=== PATIENT | female | born 1960 | race Caucasian/White ===

== ENCOUNTER 2024-11-01 16:38 | Emergency (ER) | payer BC, SELFPAY ==
[2024-11-01 16:58] VITALS: BP 126/91; PULSE 75; RESP 18; TEMP 36.9; O2SAT 97; BMI 23.4
--- NOTE | 2024-11-01 17:23 | ED.CHESTPAIN ---
HPI - Chest Pain General Date Seen: 11/01/24 Chief Complaint: Chest Pain Stated Complaint: Chest tightness, jaw pain Time Seen by Provider: 11/01/24 17:23 History of Present Illness HPI narrative: 64 yo female with a past medical history of asthma and history of breast cancer in 2020. According to her line medical record she also has a history of gastritis due to NSAIDs. . She has been healthy and well lately. No recent illness, cough, or other chest pains. No recent shortness of breath. No swelling in her legs. No hospitalization, travel or recent immobilization. She had [employer] for lunch today was feeling healthy earlier today. This afternoon she was sitting and reading in a rocking chair for about an hour when she had fairly abrupt onset of a discomfort like a squeezing in her central chest that radiated up to both sides of her jaw. It made her catch her breath and made her chest feel tight and squeeze E. It lasted a few minutes and then got better. It took a while to completely resolve but is now gone. It was not associated with any palpitations. No nausea. Mild shortness of breath. No abdominal pain. No back pain. Related Data Home Medications ?Medication ?Instructions ?Recorded ?Confirmed albuterol sulfate 90 mcg/actuation 1 - 2 puff inhalation Q4H PRN 11/01/24 11/01/24 aerosol inhaler wheezing fluticasone 250 mcg-salmeterol 50 1 ea inhalation Q12H 11/01/24 11/01/24 mcg/dose blistr powdr for inhalation (Wixela Inhub) tamoxifen 20 mg tablet 20 mg PO DAILY 11/01/24 11/01/24 Allergies Allergy/AdvReac Type Severity Reaction Status Date / Time codeine AdvReac Unknown Vomiting Verified 11/01/24 16:57 PFSH PFSH Social History Non-prescribed substance use: denies use Exam Narrative Exam Narrative: Constitutional: Appears well-developed and well-nourished. Alert. Conversant. Non toxic. HENT: Head: Atraumatic. Nose: Nose normal. Mouth/Throat: Oral mucosa is clear and moist. no trismus. Pharynx normal. Tonsils symmetric. No tonsillar enlargement, erythema, or exudate. Eyes: Conjunctivae normal. EOM normal. Pupils equal, round, and reactive to light. No scleral icterus. Neck: Normal range of motion. Neck supple. No tracheal deviation present. No JVD Cardiovascular: Normal rate, regular rhythm. No gallop. No friction rub. No murmur heard. Symmetric radial and PT artery pulses Pulmonary/Chest: Effort normal. No stridor. No respiratory distress. No wheezes. No rales. No rhonchi . No tenderness. Abdominal: Soft. No distension. No mass. No tenderness. No rebound. No guarding. Musculoskeletal: RUE: Normal range of motion. No tenderness. No deformity LUE: Normal range of motion. No tenderness. No deformity RLE: Normal range of motion. No edema. No tenderness. No deformity LLE: Normal range of motion. No edema. No tenderness. No deformity Neurological: Alert and oriented to person, place, and time. Normal strength. CN II-VII intact. No sensory deficit. GCS eye subscore is 4. GCS verbal subscore is 5. GCS motor subscore is 6. Normal coordination Skin: Skin is warm and dry. No rash noted. No pallor. Normal capillary refill. Psychiatric: Normal mood. Normal affect. Very polite. Const Vital Signs, click to edit/add: Vital Signs - 24 hr 11/01/24 16:58 11/01/24 17:38 11/01/24 17:39 Temperature 98.5 F Pulse Rate [Pulse Oximeter] 75 Respiratory Rate 18 16 14 Blood Pressure 148/90 H Blood Pressure [Right Upper Arm] 126/91 H Pulse Oximetry 97 Oxygen Delivery Method Room Air 11/01/24 18:12 11/01/24 18:15 11/01/24 20:05 Temperature Pulse Rate [Pulse Oximeter] 66 Respiratory Rate 14 14 16 Blood Pressure Blood Pressure [Right Upper Arm] 146/91 H Pulse Oximetry Oxygen Delivery Method Course Vital Signs Vital signs: Initial Vital Signs Respiratory Effort Normal, Spontaneous, Non-Labored 11/01/24 16:55 Respiratory Depth Normal 11/01/24 16:55 Respiratory Pattern Normal 11/01/24 16:55 Vital Signs Temperature 98.5 F 11/01/24 16:58 Pulse Rate 75 11/01/24 16:58 Respiratory Rate 18 11/01/24 16:58 Blood Pressure 126/91 H 11/01/24 16:58 Pulse Oximetry 97 11/01/24 16:58 Oxygen Delivery Method Room Air 11/01/24 16:58 Temperature 98.5 F 11/01/24 16:58 Pulse Rate 66 11/01/24 20:05 Respiratory Rate 16 11/01/24 20:05 Blood Pressure 146/91 H 11/01/24 20:05 Pulse Oximetry 97 11/01/24 16:58 Oxygen Delivery Method Room Air 11/01/24 16:58 Medications Administered Medications: Discontinued Medications Generic Name Dose Route Start Last Admin Trade Name Argenis PRN Reason Stop Dose Admin Aspirin 324 mg 11/01/24 17:40 11/01/24 17:50 Aspirin 81 Mg Tab.Chew PO 11/01/24 17:41 324 mg ONCE ONE Administration MDM - Chest Pain MDM Narrative Medical decision making narrative: This patient presents to the ER today for evaluation of an episode of chest pain that came 0 she was at rest in a rocking chair reading a book this afternoon about 1-2 hours prior to arrival. Differential was broad. No evidence of palpitations, syncope or other cardiac dysrhythmia. We considered possible ACS, however workup with EKG and troponin is negative. HEART score is 2 (low risk). Given time since onset of symptoms, we did check initial and 2 hour delta troponins. I do not think the patient needs to be admitted for further sets of enzymes. EKG shows no evidence for pericarditis. Clinical presentation not suggestive of myocarditis. Chest x-ray shows no evidence for pneumonia, pneumothorax, pulmonary edema, pleural effusion, rib fracture, cardiomegaly. Mediastinum is normal on the x-ray. The patient has no ripping or tearing pain through to the back and has symmetric pulses on exam, no other acute neuro findings so I doubt aortic dissection. Risk of radiation and contrast exposure would outweigh the benefit of CT angiogram. We considered PE for this patient. However she has no tachycardia, hypoxia, leg swelling risk factors. With 1 brief episode of chest pain that self-resolved, I do not think she needs PE workup. No wheezing or bronchospasm to suggest COPD/asthma. She does have a history of asthma and does have some hyperinflation on her chest x-ray but no wheezing today. No signs of chest wall cellulitis, shingles, injury. With reasonable clinical confidence, I think the patient is safe for outpatient follow up. Discussed return precautions. Questions answered. Patient voices comfort with the plan. Lab Data Labs: Lab Results 11/01/24 11/01/24 11/01/24 Range/Units 17:30 17:40 19:30 WBC 5.05 (4.50-11.00) K/uL RBC 4.24 (4.00-5.20) m/uL Hgb 13.0 (12.0-16.0) gm/dL Hct 39.2 (33.0-51.0) % MCV 93 (80-100) fL MCH 31 (26-34) pg MCHC 33 (32-36) gm/dL RDW Coeff of [place] 12.3 (11.5-15.5) % Plt Count 271 (140-440) K/uL Neut % (Auto) 53.8 (42.0-72.0) % Lymph % (Auto) 30.5 (20-44) % Blair % (Auto) 12.7 H (0.0-11.0) % Eos % (Auto) 2.6 (0.0-7.0) % Baso % (Auto) 0.2 (0.0-3.0) % Neut # (Auto) 2.72 (1.7-7.0) K/uL Lymph # (Auto) 1.54 (0.90-2.90) K/uL Blair # (Auto) 0.60 (0.00-0.90) K/UL Eos # (Auto) 0.13 (0.00-0.50) K/uL Baso # (Auto) 0.01 (0.00-0.30) K/uL Abs Immat Gran (auto) 0.01 (0.00-0.30) K/uL Imm/Tot Granulo (auto) 0.2 % Sodium 136 (135-149) mmol/L Potassium 4.0 (3.6-5.1) mmol/L Chloride 103 (96-114) mmol/L Carbon Dioxide 26 (20-32) mmol/L Anion Gap 7 (7-15) mEq/L BUN 18 (7-30) mg/dL Creatinine 0.7 (0.5-1.5) mg/dL Estimated Creat Clear 56.00 Estimated GFR 97 ml/min Glucose 95 (60-115) mg/dL Calcium 9.4 (8.4-10.6) mg/dL POC Troponin I 0.00 L 0.00 L (0.01-0.04) ng/ml Imaging Data Chest x-ray: Attestation: I have reviewed the pertinent imaging results. Radiologist's impression: IMPRESSION: 1. Bilateral pulmonary hyperinflation and lucency is noted. This is suggestive of moderate to severe pulmonary emphysema. ECG Data Attestation: I personally reviewed and interpreted this ECG as follows: Interpretation: Normal sinus rhythm Rate: 63 SC: 184 QRS axis: Normal axis. No pathologic Q-waves. ST segment/T wave: No ST segment elevation or depression. QTc: 429 Discharge Plan Discharge Clinical Impression: Chest pain Patient Disposition: Home, Self-Care Condition: Stable Instructions: Chest Pain (DC) Additional Instructions: At this point your workup looks reassuring. We do not see any evidence for heart attack as a cause for your chest pain today. I think it is safe for you to go home. However I wanted to monitor yourself carefully. If you have more episodes of chest pain or other symptoms such as shortness of breath, palpitations, swelling in your legs, or any concerns, please come back to the ER or see your doctor immediately. Prescriptions: No Action fluticasone propion-salmeterol [Wixela Inhub] 250-50 mcg/dose blister with device 1 ea INHALATION Q12H albuterol sulfate 90 mcg/actuation HFA aerosol inhaler 1 - 2 puff INHALATION Q4H PRN (Reason: wheezing) tamoxifen 20 mg tablet 20 mg PO DAILY Follow Up/Referrals: Agatha Mcgraw DO [Primary Care Provider, Family Practice] Stand Alone Forms: [facility] Info Instructions
[2024-11-01 17:38] VITALS: BP 148/90; RESP 16
[2024-11-01 17:39] VITALS: RESP 14
--- NOTE | 2024-11-01 17:40 | CRLHL7_ITS ---
For Patients: As a result of the Cures Act, medical imaging exams and procedure reports are released immediately into your electronic medical record. You may view this report before your referring provider. If you have questions, please contact your health care provider. INDICATION: Chest pain TECHNIQUE: Chest radiograph 2 views COMPARISON: None FINDINGS: Mediastinum: The mediastinum is normal in appearance. The heart silhouette is normal in size and morphology. Lung: Bilateral pulmonary hyperinflation and lucency is noted. No sign of pleural effusion seen. No pneumothorax is identified. Bone and Soft tissue: Unremarkable for age. Several surgical clips are seen over the right breast. Prominent nipple silhouettes are noted bilaterally. IMPRESSION: 1. Bilateral pulmonary hyperinflation and lucency is noted. This is suggestive of moderate to severe pulmonary emphysema. Dictated by Arjun Tafoya MD @ 11/01/2024 6:02:34 PM Dictated by: Arjun Tafoya MD @ 11/01/2024 18:02:36 (Electronically Signed)
[2024-11-01] MEDS: ASPIRIN 81 MG TAB.CHEW 324 MG PO (17:50)
[2024-11-01 17:51] LABS: Basophils Absolute Auto 0.01 K/uL (0.00-0.30); Basophils Percent Auto 0.2 % (0.0-3.0); Eosinophils Absolute Auto 0.13 K/uL (0.00-0.50); Eosinophils Percent Auto 2.6 % (0.0-7.0); Hematocrit 39.2 % (33.0-51.0); Immature Granulocytes Abs Auto 0.01 K/uL (0.00-0.30); Immature Granulocytes Pct Auto 0.2 %; Lymphocytes Absolute Auto 1.54 K/uL (0.90-2.90); Lymphocytes Percent Auto 30.5 % (20-44); Mean Corpuscular HGB Conc 33 gm/dL (32-36); Mean Corpuscular Hemoglobin 31 pg (26-34); Mean Corpuscular Volume 93 fL (80-100); Monocytes Percent Auto 12.7 % (0.0-11.0); Neutrophils Absolute Auto 2.72 K/uL (1.7-7.0); Neutrophils Percent Auto 53.8 % (42.0-72.0); Platelet Count* 271 K/uL (140-440); RDW Coefficient of Variation % 12.3 % (11.5-15.5); Red Blood Count 4.24 m/uL (4.00-5.20); White Blood Count* 5.05 K/uL (4.50-11.00)
[2024-11-01 17:53] LABS: Slide Review Reflex No
--- OUTSIDE RECORDS SUMMARY | 2024-11-01 17:56 | XMS_ITS | Clinical Summary ---
Author Organization [facility] Address [address] [place] [id number] Care Team Providers Care Valve Mechanic Name Role Phone Agatha Mcgraw DO Primary Care Provider [phone] Jennifer De Anda MD Unavailable Unavailable Leilani Mcmahan MD Unavailable [phone] Cristina MalhotrayD, LP Unavailable [phone] Allergies Active Allergy Reactions Criticality Noted Date Comments Codeine 07/29/2007 Mometasone-Formoterol Cough,Other - Desc ribe In Comment Field Medium 02/25/2016 Dry, sore throat Medications multivitamins-mi nerals-lutein (Multivitamin 50 Plus) tab tablet Take 1 Tablet by mouth once daily. 0 09/24/19 21 Active Cetirizine (ZyrTEC) 10 mg cap Take by mouth. 0 09/24/19 21 Active ibuprofen (ADVIL; MOTRIN) 600 mg tabletIndication s:Breast cancer (HC) Take 1 Tablet (600 mg) by mouth every 6 hours if needed. Maximum of 3200 mg in 24 hours. 10/12/19 21 Active acetaminophen (TYLENOL) 325 mg tabletIndication s:Breast cancer (HC) Take 1-2 Tablets (325-650 mg) by mouth every 6 hours if needed. Max acetaminophen dose: 4000mg in 24 hrs. 10/12/19 21 Active calcium citrate/vitamin D3 (CALCIUM CITRATE CHEW, OTC,) 1200 mg 0 02/18/20 21 Active cholecalciferol, Vitamin D3, (Vitamin D-3) 2,000 unit tabletIndication s:Vitamin D deficiency Take 2 Tablets (4,000 units) by mouth once daily. In winter. 1000IU dose in spring, summer and fall. 180 Tablet 1 04/14/20 21 Active Additional Information Patient taking differently: 3,000 unitOral DAILY, In winter. 1000IU dose in spring, summer and fall., Reported on 09/08/2024 carboxymethylcel lulose sodium (REFRESH PLUS OPHT) 08/21/19 22 Active Xiidra 5 % dpet INSTILL 1 DROP INTO THE LEFT EYE EVERY 12 HOURS 09/06/19 22 Active miscellaneous medical supply (Blood Pressure Cuff) miscIndications: Elevated BP without diagnosis of hypertension BP cuff for home monitoring 1 Each 02/03/20 23 Active albuterol HFA 90 mcg/actuation inhalerIndicatio ns:Mild intermittent asthma without complication (HC) Inhale 1-2 Puffs by mouth every 4 hours if needed for Shortness Of Breath or Wheezing. FILL NOW 1 Each 3 07/27/19 25 Active fluticasone propion-salmeter oL (Wixela Inhub) 250-50 mcg/Dose diskus inhalerIndicatio ns:Mild intermittent asthma without complication (HC) Inhale 1 Puff by mouth every 12 hours. HOLD until patient calls 180 Each 3 07/27/19 25 Active tamoxifen 20 mg tabletIndication s:Malignant neoplasm of upper-outer quadrant of right breast in female, estrogen receptor positive (HC) Take 1 Tablet (20 mg) by mouth once daily. 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 04/21/2021 Anxiety about health 11/20/2020 Rumination 11/20/2020 Malignant neoplasm of upper-outer quadrant of fe male breast 10/22/2020 Malignant neoplasm of upper- outer quadrant of right breast in female, estrogen receptor positive 09/26/2020 Cancer Staging:Clinical:Stage IA(cT1c, cN0, cM0, G1, ER+, NH+, HER2-) - Signed by Jennifer De Anda MD on 09/26/2020 Pathologic:Stage IA(pT1b, pN0, cM0, G1, ER+, NH+, HER2-, Oncotype DX score: 17) - Signed by Leilani Mcmahan MD on 10/28/2020 Mild intermittent asthma without complication Overview (07/12/2018): Uses advair in the summer Gastritis due to nonsteroidal anti-inflammatory drug 03/30/2017 Vitamin D deficiency 03/02/2016 Encounters Date Type Department Care Team Description 09/08/2024 11:30 AM CDT Office Visit [facility] [address] [facility] [address] [place] [address] Park Olson NP Follow Up 09/07/2024 Travel 08/14/2024 Refill [facility] [address] [place] [address] Leilani Mcmahan MD Refill Request from Last 3 Months Immunizations Immunization Administration Dates Next Due COVID-19 VACCINE NOVAVAX [id number] FORMULA 03/12 COVID-19 VACCINE SPIKEVAX (M ODERNA 50MCG/0.5ML) 12YO+ PFS 02/02/2023 COVID-19 vaccine (Moderna 100mcg/0.5mL) PF, MDV 07/17/2020,06/19/2020 COVID-19 vaccine (Moderna 50 mcg/0.5mL) 12YO+ BIVALENT PF, MDV 02/15/2022 Influenza A (H1N1), Inactivated (Age >=3 Years) 03/14/2009 Influenza, CCIIV3 (Age >=6 MO) (Egg Free) 2023 Influenza, IIV4 02/07/2019,02/25/2016 Influenza,CCIIV4 PRESERV FREE 03/20/2023 Pneumococcal conj 13-Valent (Prevnar 13) 015 Tdap 12/20/2014 Family History Medical History Relation Name Comments Leukemia Brother 1 Melanoma Brother 2 brother Cancer-prostate Father Heart Disease Mother pacemaker, kne e oa recommended TKA however declined Arthritis Other sister & bro nestor th had knee problems similar to hers Cancer-colon Sister Other Sister non cancerous b reast tumor Cancer No Family History no ovarian ca Cancer-breast No Family History Cancer-ovarian No Family History Cancer-pancreatic No Family History Relation Name Status Comments Brother 1 Brother 2 brother Alive Father Mother Other Sister Social History Tobacco Use Types Packs/Day Years Used Date Smoking Tobacco: Never Passive Smoke Exposure: Past Smokeless Tobacco: Never Tobacco Cessation:Counseling Given: Not Answered Alcohol Use Standard Drinks/Week Comments Yes 1 (1 standard drink = 0.6 oz pur e alcohol) I glass every couple months PHQ-2 Answer Date Recorded PHQ-2 TOTAL SCORE 0 04/19/2024 Social Connections Answer Date Recorded Do you often feel lonely or isolated from those around you? 0 04/18/2024 Financial Resource Strain Answer Date R ecorded Difficulty of Paying Living Expenses 3 04/18/2024 Difficulty of Paying Living Expenses Not on file 04/18/2024 Food Insecurity Answer Date Recorded Do you worry your food will run out before you are able to buy more? 1 04/18/2024 Transportation Needs Answer Date Record ed Does lack of transportation keep you from medica l appointments? 1 04/18/2024 Does lack of transportation keep you from work, meetings or getting things that you need? 1 04/18/2024 Housing Stability Answer Date Recorded What is your housing situation today? 1 04/18/2024 Utilities Answer Date Recorded Do you have trouble paying f or utilities (for example, heat, electricity, water, phone)? 1 04/18/2024 Comments No Sex and Gender Information Value Date Recorded Sex Assigned at Female 11/20/2020 8:16 AM CDT Legal Sex Female 5:25 AM REHAB AIDE Gender Identity Female 11/20/2020 8:16 AM CDT Sexual Orientation Straight 11/20/2020 8: 16 AM CDT Obstetrics History Para Term AB IAB SAB Ectopic Multiple Livin g Live Births 2 2 2 0 0 0 0 0 0 2 2 Date Outcome GA Total Labor Labor/2nd/3rd Weight Sex Type Anes PTL Brittaney A1 A5 Name Clin Term M Vag Living Term F Vag Living Last Filed Vital Signs Vital Sign Reading Time Taken Comments Blood Pressure 129/82 09/08/2024 11:35 AM CDT Pulse 65 09/08/2024 11:35 AM CDT Temperature 36.6 C (97.9 F) 09/08/2024 11:35 AM CDT Respiratory Rate 16 09/08/2024 11:35 AM CDT Oxygen Saturation 97% 09/08/2024 11:35 AM CDT Inhaled Oxygen Concentration - - Weight 67.2 kg (148 lb 1.6 oz) 09/08/2024 11:00 AM CDT Height 168.9 cm (5' 6.5) 04/19/2024 3:19 PM REHAB AIDE Body Mass Index 23.55 04/19/2024 3:19 PM REHAB AIDE Plan of Treatment Upcoming Encounters Date Type Department Care Team (Late st Contact Info) Description 11/02/2024 1:05 PM CDT Office Visit [facility] [address] [place] [address] Agatha Mcgraw DO [address] [place] [address] 11/24/2024 10:30 AM CDT Appointment [facility] [address] [place] [address] 11/24/2024 11:00 AM CDT Appointment [place] [address] [address] 03/16/2025 11:20 AM REHAB AIDE Office Visit [facility] [address] [place] [address] [address] [place] [address] Leilani Mcmahan MD [address] [id number] [place] [address] Health Maintenance Due Date Last Done Comments Zoster (shingles) series for age 50+ (1 of 2) 1980 Pneumococcal series for age 50+ (2 of 2 - PPSV23) 02/15/2015 12/21/2014 RSV vaccine for adults or (1 - Risk 60-74 years 1-dose series) 2021 COVID-19 vaccine series (8 - Moderna risk 2023- season) 2024 03/12/2024, 02/02/2023, 02/15/2022, Additional history exists Mammogram for age 45-75 11/23/2024 11/24/19 24, 11/03/2022, 10/29/2021, Additional history exists Tetanus booster 12/20/2024 12/20/2014 HIV for age 15-65 01/08/2025 Postponed from 1976 (Patient discretion) Hepatitis C screening for age 18-79 01/08/2025 Postponed from 08/12/1979 (Patient discretion) BMI (ht and wt on same day) for age 18+ 04/19/2025 04/19/2024, 11/24/2023, 03/12/2023, Additional history exists Depression screening for age 12+ 04/19/2025 04/19/2024, 02/04/2023, 02/02/2023, Additional history exists Pap test for age 21-65 10/29/2026 , 10/29/2021, 12/20/2014, Additional history exists Lipids for age 45-75 10/06/2028 10/07/2023, 02/02/2023, 10/29/2021, Additional history exists Colonoscopy through age 75 10/16/2031 10/15/2021, Tdap Completed 12/20/2014 Influenza Vaccine Completed 04/10/2024, , 02/07/2019, Additional history exists Hepatitis B series for 19+ Aged Out N o longer eligible based on patient's age to complete this topic Procedures Procedure Name Priority Date/Time Associated Diagnosis Comments XR MAMMO LICO BILAT SCREEN Routine 11/24/2023 11:02 AM CDT Visit for screening mammogram LIPID PANEL W REFLEX MEASURED LDL Routine 10/07/2023 12:17 PM CDT Hyperlipidemia, unspecified hyperlipidemia type HPV HIGH RISK Routine 10/29/2021 2:00 PM CDT Cervical cancer screening COLONOSCOPY 10/15/2021 8:51 AM CDT from Last 3 Months or Most Recently Relevant to Health Maintenance Results * XR MAMMO LICO BILAT SCREEN (11/24/2023 11:02 AM CDT) Anatomical Region Laterality Modality BREASTS, Breast Left, Breast Right Bilateral Mammography Impressions 11/24/2023 11:10 AM CDT There is no radiographic evidence for malignancy. Recommend annual mammograms. MAMMOGRAM ASSESSMENT: ACR 2 Benign PATIENTS: You will also receive a letter with your examination results in an easy to read format. If you have questions about your results, please contact your referring provider. Narrative 11/24/2023 11:10 AM CDT For Patients: As a result of the Century Cures Act, medical imaging exams and procedure reports are released immediately into your electronic medical record. You may view this report before your referring provider. If you have questions, please contact your health care provider. XR MAMMO LICO BILAT SCREEN [[id number]] CLINICAL HISTORY: This is an asymptomatic 63 y.o. patient. INDICATION FOR EXAM: Mammogram Screening. TECHNIQUE: CC & MLO views were obtained. This study was evaluated with the assistance of Computer-Aided Detection. Breast Tomosynthesis was used in interpretation. COMPARISON FILMS: Yes 11/03/22 Sonicbids 10/29/21 Sonicbids FINDINGS: The breasts are heterogeneously dense, which may obscure small masses. No suspicious masses or microcalcifications. There are post surgical changes of right breast. Agatha Mcgraw DO MAMMO Final Resu lt * (ABNORMAL) LIPID PANEL W REFLEX MEASURED LDL (10/07/2023 12:17 PM CDT) CHOLESTEROL,TOTAL 209(H) 100 - 199 mg/dL 10/08/2023 1:13 AM CDT [facility] Comment: Cholesterol, Total Reference Ranges Desirable <200 mg/dL Borderline 200-239 mg/dL High >=240 mg/dL TRIGLYCERIDES 57 <150 mg/dL 10/08/2023 1:13 AM CDT [facility] HDL CHOLESTEROL 69 >40 mg/dL 4 1:13 AM CDT [facility] NON-HDL CHOLESTEROL 140 <145 mg/dl 10/08/2023 1:13 AM CDT [facility] CHOL/HDL RATIO 3.03 <4.50 10/08/2023 1:13 AM CDT [facility] LDL CHOLESTEROL 129 <=130 mg/dL 10/08/2023 1:13 AM CDT [facility] VLDL CHOLESTEROL 11 <=30 mg/dL 10/08/2023 1:13 AM CDT [facility] PROVIDER ORDERED STATUS RANDOM 10/08/2023 1:13 AM CDT [facility] Blood BLOOD SPECIMEN / Unknown Venipuncture / Unknown 10/07/2023 12:17 PM CDT 10/07/2023 12:17 PM CDT [facility] Maryana Mcgraw CHEMISTRY Final Resu lt Performing Organization Address City/[facility]/ZIP Co de Phone Number [facility] [address] [place] [address], * HPV HIGH RISK (10/29/2021 2:00 PM CDT) TYPE 16 Negative Negative 10/31/2021 1:14 PM CDT [facility] TYPE 18 Negative Negative 10/31/2021 1:14 PM CDT [facility] OTHER HIGH RISK TYPES Negative Negative 10/31/2021 1:14 PM CDT [facility] Other (Cervical) Non-Blood / Unknown 10/29/2021 2:00 PM CDT 10/30/2021 8:59 AM CDT Narrative [facility] - 10/31/2021 1:14 PM CDT HPV types 16, 18, 31, 33, 35, 39, 45, 51, 52, 56, 58, 59, 66 and 68 DNA were undetectable or below the pre-set threshold. Methodology: Control4as 4800 HPV Test Agatha Maryana [facility] MICROBIOLOGY Final Resu lt [facility] [address] [place] [address], [place] * COLONOSCOPY (10/15/2021 8:51 AM CDT) 10/15/2021 8:51 AM CDT Narrative Transcriptions Justyn Carney MD - 10/15/2021 10:37 AM CDT Patient Name: Mone Stewart Procedure Date: 10/15/2021 Gender: Female Date of : 1960 Admit Type: Outpatient Procedure: Colonoscopy Proceduralist: Justyn Carney MD , Adriane Trejo RN(Nurse) Indications/Pre-Op Diagnosis: Screening for colorectal malignant neoplasm, This is the patient's first colonoscopy Medications: Fentanyl 150 micrograms IV, Midazolam 4 mgIV, The level of sedation administered wasmoderate Procedure Description: The patient had risks, benefits and alternatives explained to andgave informed consent. The patient had a stable cardiopulmonary status and judged an adequate candidate for conscious sedation. The colonoscope was passed through the anus and advanced to thececum, identified by appendiceal orifice and ileocecal valve. Thecolonoscopy was performed without difficulty. The patient tolerated the procedure well. The quality of the bowel preparation was good. The ileocecal valve, appendiceal orifice, and rectum were photographed. Complications: No immediate complications. Estimated Blood Loss & Specimen: Estimated blood loss: none. Specimen collected - None Findings: The perianal and digital rectal examinations were normal. The entire examined colon appeared normal on direct and retroflexion views. Impressions/Post-Op Diagnosis: - The entire examined colon is normal on direct and retroflexionviews. - No specimens collected. Recommendation: - Patient has a contact number available for emergencies. The signsand symptoms of potential delayed complications were discussed with the patient. Return to normal activities tomorrow. Written discharge instructions were provided to the patient. - Resume previous diet. - Continue present medications. - Repeat colonoscopy in 10 years for screening purposes. Moderate Sedation: Moderate (conscious) sedation was administered by the endoscopy nurse and supervised by the endoscopist. The following parameters were monitored: oxygen saturation, heart rate, respiratory rate, blood pressure, adequacy of pulmonary ventilation and reponse to care. Please refer to the patient's medical record flowsheets and nursing notes for moderate sedation details. Total physician intraservice time was 32 minutes. Justyn Carney MD 10/15/2021 10:37:47 AM This report has been signed electronically. Note Initiated On: 10/15/2021 8:51 AM Procedure Code(s): --- Professional --- 92577, Colonoscopy, flexible; diagnostic, including collection of specimen(s) bybrushing or washing, when performed (separateprocedure) Diagnosis Code(s): --- Professional --- Z12.11, Encounter for screening formalignant neoplasm of colon CPT copyright 2020 [employer]. All rights reserved. The codes documented in this report are preliminary and upon automotive production worker reviewmay be revised to meet current compliance requirements. Scope In: 10:02:06 AM Scope Withdrawal Time 0 hours 8 minutes 7 seconds Scope Out: 10:30:46 AM us Justyn Carney MD PROCEDURE ORD Final Res ult from Last 3 Months or Most Recently Relevant to Health Maintenance Insurance [facility] Advance Directives * Full Code (Latest Code Status on File) Date Activated Date Inactivated Comments 10/11/2020 11:51 AM 10/11/2020 2:55 PM Question Answer Comments Code Status Discussion: Not Discussed Care Teams Valve Mechanic Relationship Specialty Start Date End Date Agatha Mcgraw DO [address] [place] [address] PCP - General Family Practice 03/11/19 Jennifer De Anda MD [address] [place] [address] Surgery - General 09/23/20 Leilani Mcmahan MD [address] [place] [address] Oncology 10/15/20 Cristina Malhotra PsyD, LP [address] [address] Psychologist Psychology 12/16/20
[2024-11-01 18:12] VITALS: RESP 14
[2024-11-01 18:14] LABS: Chloride* 103 mmol/L (96-114); Sodium* 136 mmol/L (135-149)
[2024-11-01 18:15] VITALS: RESP 14
[2024-11-01 18:17] LABS: Blood Urea Nitrogen* 18 mg/dL (7-30); Calcium* 9.4 mg/dL (8.4-10.6); Carbon Dioxide* 26 mmol/L (20-32); Creatinine* 0.7 mg/dL (0.5-1.5); Estimated Glomerular Filt Rate 97 ml/min; Glucose* 95 mg/dL (60-115)
[2024-11-01 18:20] LABS: Anion Gap 7 mEq/L (7-15)
[2024-11-01 20:05] VITALS: BP 146/91; PULSE 66; RESP 16
== END 2024-11-01 20:05 | disposition home or self-care (01) ==
PROVIDERS: Emergency Provider Emergency Medicine; PCP Family Medicine
DX: R07.9 Chest pain, unspecified (principal)
CPT/HCPCS: 36415; 71046; 80048; 84484; 85025; 93005; 99283; 99284; A9270